=== PATIENT | male | born 1980 | race Caucasian/White ===

== ENCOUNTER 2017-06-06 23:39 | Emergency (ER) | payer MEDICAID, OTHER ==
[2017-06-06 23:48] VITALS: BP 118/76; PULSE 106; RESP 16; TEMP 97.9; O2SAT 97
[2017-06-06] MEDS ORDERED: CEPHALEXIN 250 MG/5 ML BOTTLE PO ONE (23:59)
== END 2017-06-07 00:05 | disposition home or self-care (01) | DRG 603 ==
LOC: ED 23:39
DX: L03.114 Cellulitis of left upper limb (principal)
CPT/HCPCS: 99282; 99283

== ENCOUNTER 2017-07-22 22:44 | Emergency (ER) | payer OTHER ==
[2017-07-22] MEDS ORDERED: KETOROLAC TROMETHAMINE 30 MG/ML SOL IM ONE (22:50)
[2017-07-22] MEDS ORDERED: APAP/HYDROCODONE 325/5 TAB PO ONE (22:50)
[2017-07-22 22:54] VITALS: BP 121/73; PULSE 113; RESP 18; TEMP 98.1; O2SAT 99
[2017-07-22] MEDS ORDERED: APAP/HYDROCODONE 325/5 TAB ONE (22:54)
[2017-07-22] MEDS ORDERED: KETOROLAC TROMETHAMINE 30 MG/ML SOL ONE (22:54)
== END 2017-07-22 23:08 | disposition home or self-care (01) | DRG 935 ==
LOC: ED 22:44
DX: T24.102A Burn of first degree of unspecified site of left lower limb, except ankle and foot, initial encounter (principal); T31.0 Burns involving less than 10% of body surface; T24.101A Burn of first degree of unspecified site of right lower limb, except ankle and foot, initial encounter; X08.8XXA Exposure to other specified smoke, fire and flames, initial encounter
CPT/HCPCS: 96372; 99282; 99283; J1885

== ENCOUNTER 2018-03-24 12:14 | Emergency (ER) | payer OTHER ==
[2018-03-24 12:35] VITALS: RESP 20; TEMP 99.5
[2018-03-24] MEDS ORDERED: SULFAMETHOXAZOLE/TRIMETHOPRI 800/160 MG PO ONE (13:25)
[2018-03-24] MEDS ORDERED: KETOROLAC TROMETHAMINE 30 MG/ML SOL IM ONE (13:26)
[2018-03-24] MEDS ORDERED: DIPHENHYDRAMINE 50 MG/ML SOL IM ONE (13:26)
[2018-03-24] MEDS ORDERED: KETOROLAC TROMETHAMINE 30 MG/ML SOL ONE (13:30)
[2018-03-24] MEDS ORDERED: SULFAMETHOXAZOLE/TRIMETHOPRI 800/160 MG ONE (13:30)
[2018-03-24] MEDS ORDERED: DIPHENHYDRAMINE 50 MG/ML SOL ONE (13:31)
[2018-03-24 14:01] VITALS: BP 111/71; PULSE 102; O2SAT 98
== END 2018-03-24 13:58 | disposition home or self-care (01) | DRG 607 ==
LOC: ED 12:14
DX: S60.562A Insect bite (nonvenomous) of left hand, initial encounter (principal); L03.114 Cellulitis of left upper limb
CPT/HCPCS: 96372; 99283; J1200; J1885; A9270-GY